=== PATIENT | female | born 1940 | race Asian ===

== ENCOUNTER 2018-02-13 08:32 | Inpatient (IN) | payer MEDICARE, OTHER ==
[~2018-02-13] VITALS: Ht 152.4 cm; Wt 58.9 kg
[2018-02-13] MEDS ORDERED: SODIUM CHLORIDE 0.9% 1,000 ML IV ONE (09:17)
[2018-02-13 09:29] LABS: Urine Bacteria NONE SEEN /hpf (None Seen); Urine Blood 1+ /uL (Negative); Urine Hyaline Cast FEW /lpf (0 - 2); Urine Specific Gravity 1.015 (1.001-1.035); Urine WBC 1 /hpf (0 - 5)
[2018-02-13] MEDS ORDERED: LORazepam 2MG/ML-1ML VIAL IV ONE (09:30)
[2018-02-13 09:43] LABS: Alcohol, Urine < 3.0 mg/dL (0-5); Amphetamine Screen, Urine NEGATIVE (NEGATIVE); Barbiturate Scree,Urine NEGATIVE (NEGATIVE); Benzodiazephine Screen, Urine NEGATIVE (NEGATIVE); Cannabinoid Screen, Urine NEGATIVE (NEGATIVE); Cocaine Screen, Urine NEGATIVE (NEGATIVE); Opiate Scree,Urine NEGATIVE (NEGATIVE); Phencyclidine Screen, Urine NEGATIVE (NEGATIVE)
[2018-02-13 09:48] LABS: Basophils # (auto) 0 uL; Basophils % (auto) 0.5 % (0.0-2.0); Eosinophils # (auto) 0.1 uL; Eosinophils % (auto) 1.3 % (0.0-7.0); Hematocrit 43.5 % (36.0-46.0); Lymphocytes % (auto) 42.4 % (10.0-50.0); Mean Corpuscular Hemoglobin 28.6 pg (28.0-32.0); Mean Corpuscular Hgb Conc. 32.2 g/dL (32.0-36.0); Mean Corpuscular Volume 88.8 fL (80.0-100.0); Monocytes # (auto) 0.3 uL; Monocytes % (auto) 4.6 % (0.0-12.0); Neutrophils # (auto) 3.6 uL; Neutrophils % (auto) 51.2 % (37.0-80.0); Nucleated Red Blood Cells % 0.1 %; Platelet Count (auto) 371 10^3/uL (140-450); Red Cell Distribution Width 13.4 % (11.8-14.3); White Blood Cell 7.1 10^3/uL (4.4-10.8)
[2018-02-13 10:06] LABS: Alanine Aminotransferase 22 U/L (13-56); Albumin 4.1 g/dL (3.4-5.0); Anion Gap 11 (5-15); Aspartate Aminotransferase 18 U/L (15-37); BUN/Creatinine Ratio 12.9; Blood Alcohol < 3.0 mg/dL (0-5); Blood Urea Nitrogen 15 mg/dL (7-18); Calcium 8.9 mg/dL (8.5-10.1); Carbon Dioxide 21 mmol/L (21-32); Chloride 109 mmol/L (98-107); GFR African American 58 mL/min; GFR Non-African American 48 mL/min; Glucose 131 mg/dL (74-106); Magnesium 2.2 mg/dL (1.6-2.6); Potassium 3.8 mmol/L (3.5-5.1); Sodium 141 mmol/L (136-145)
[2018-02-13 10:11] LABS: Alkaline Phosphatase 98 U/L (45-117); Bilirubin, Total 0.5 mg/dL (0.2-1.0); Total Protein 8.7 g/dL (6.4-8.2)
[2018-02-13 10:15] LABS: Lactic Acid w/Reflex 2.7 mmol/L (0.4-2.0)
[2018-02-13] MEDS: PANTOPRAZOLE 40 MG TAB PO SCH (12:14)
[2018-02-13] MEDS: ASPirin 81 mg TAB PO SCH (12:14)
[2018-02-13] MEDS ORDERED: TEMAZEPAM 15 MG CAP PO PRN (12:15)
[2018-02-13] MEDS ORDERED: LORazepam 0.5 MG TAB PO PRN (12:15)
[2018-02-13] MEDS ORDERED: DEXTROSE (50%) 50ML SYRG IV PRN (12:15)
[2018-02-13] MEDS ORDERED: NITROGLYCERIN 0.4 MG SL TAB SL PRN (12:15)
[2018-02-13] MEDS ORDERED: ACETAMINOPHEN 500 MG TAB PO PRN (12:15)
[2018-02-13] MEDS ORDERED: PROMETHAZINE HCL 25 MG/ML 1ML IV PRN (12:15)
[2018-02-13] MEDS ORDERED: LACTULOSE 20Gm/30ML SOLN PO PRN (12:15)
[2018-02-13] MEDS ORDERED: MORPHINE SULFATE 4 MG/ML SYR/VIAL IV PRN ×2 (12:15)
[2018-02-13] MEDS ORDERED: HYDROcodone-ACET 5/325MG TAB PO PRN (12:15)
[2018-02-13] MEDS: ENOXAPARIN SOD 40 MG/0.4 ML SYRINGE SC SCH (12:33)
[2018-02-13] MEDS: cefTRIAXone 1GM/50ML D5W 50 ML IV SCH (13:08)
[2018-02-13] MEDS: SODIUM CHLORIDE 0.9% 1,000 ML IV SCH (13:08)
[2018-02-13 16:40] VITALS: BP 138/74
[2018-02-13] MEDS: ACCU-CHEK COMFORT CURVE STRIP VI SCH ×2 (18:00→18:34)
[2018-02-13 20:00] VITALS: BP 132/65
[2018-02-13] MEDS ORDERED: LORazepam 2MG/ML-1ML VIAL IV PRN (21:00)
[2018-02-13] MEDS: ATORVASTATIN 20 MG TAB PO SCH (21:23)
[2018-02-13 21:30] VITALS: BP 132/65
[2018-02-13 21:31] LABS: Cholesterol 151 mg/dL (< 200); Triglycerides 229 mg/dL (< 150)
[2018-02-13 21:33] LABS: HDL Cholesterol 38 mg/dL (40-59); LDL Cholesterol 89 mg/dL (< 100)
[2018-02-13] MEDS ORDERED: ATORVASTATIN 20 MG TAB PO SCH (22:00)
[2018-02-14] MEDS: SODIUM CHLORIDE 0.9% 1,000 ML IV SCH ×2 (00:22→12:39)
[2018-02-14 05:00] VITALS: BP 163/87
[2018-02-14] MEDS: ACCU-CHEK COMFORT CURVE STRIP VI SCH ×4 (05:43→23:31)
[2018-02-14 08:47] VITALS: BP 164/90
[2018-02-14] MEDS: cefTRIAXone 1GM/50ML D5W 50 ML IV SCH (09:23)
[2018-02-14] MEDS: ASPirin 81 mg TAB PO SCH (11:19)
[2018-02-14] MEDS: PANTOPRAZOLE 40 MG TAB PO SCH (11:19)
[2018-02-14] MEDS: ENOXAPARIN SOD 40 MG/0.4 ML SYRINGE SC SCH (11:20)
[2018-02-14 13:20] VITALS: BP 151/77
[2018-02-14] MEDS ORDERED: ACET-1156 PO (17:03)
[2018-02-14] MEDS ORDERED: BUSP10TA90 PO (17:04)
[2018-02-14] MEDS ORDERED: QUET100T46 PO (17:05)
[2018-02-14 17:14] VITALS: BP 154/102
[2018-02-14] MEDS ORDERED: CLON0.2D6 PO (17:17)
[2018-02-14] MEDS ORDERED: TEMA30CA PO (17:17)
[2018-02-14] MEDS ORDERED: AMLO5TAB13 PO (17:17)
[2018-02-14] MEDS ORDERED: ASPI325T4 PO (17:17)
[2018-02-14] MEDS ORDERED: DOCU100T15 PO (17:17)
[2018-02-14] MEDS ORDERED: LISI10TA6 PO (17:17)
[2018-02-14] MEDS ORDERED: MULTTAB61 PO (17:17)
[2018-02-14] MEDS ORDERED: ATOR40TA52 PO (17:17)
[2018-02-14] MEDS ORDERED: BACL10TA PO (17:17)
[2018-02-14] MEDS ORDERED: SENN-58 PO (17:17)
[2018-02-14] MEDS ORDERED: OME20T PO (17:17)
[2018-02-14] MEDS ORDERED: LACT10SO3 PO (17:18)
[2018-02-14] MEDS ORDERED: FURO20TA3 PO (17:18)
[2018-02-14] MEDS ORDERED: TRAM50TA2 PO (17:18)
[2018-02-14] MEDS ORDERED: ALPR0.254 PO (17:21)
[2018-02-14] MEDS ORDERED: ALUMSUS OR (17:26)
[2018-02-14 20:00] VITALS: BP 189/128
[2018-02-14] MEDS: ATORVASTATIN 20 MG TAB PO SCH (21:19)
[2018-02-14] MEDS: LABETALOL HCL 5 MG/ML ML 20ML VIAL IV PRN (21:52)
[2018-02-14 22:00] VITALS: BP 189/128
[2018-02-15] MEDS: SODIUM CHLORIDE 0.9% 1,000 ML IV SCH ×2 (01:39→15:04)
[2018-02-15 05:00] VITALS: BP 167/83
[2018-02-15] MEDS: LABETALOL HCL 5 MG/ML ML 20ML VIAL IV PRN ×4 (05:15→21:52)
[2018-02-15] MEDS: ACCU-CHEK COMFORT CURVE STRIP VI SCH ×4 (05:16→23:52)
[2018-02-15 08:54] VITALS: BP 149/107
[2018-02-15] MEDS: cefTRIAXone 1GM/50ML D5W 50 ML IV SCH (09:20)
[2018-02-15] MEDS: PANTOPRAZOLE 40 MG TAB PO SCH (09:20)
[2018-02-15] MEDS: ASPirin 81 mg TAB PO SCH (09:22)
[2018-02-15] MEDS: ENOXAPARIN SOD 40 MG/0.4 ML SYRINGE SC SCH (09:31)
[2018-02-15 10:37] LABS: Folate (Folic Acid) 9.79 ng/mL (5.38-24)
[2018-02-15 12:22] VITALS: BP 185/89
[2018-02-15 17:15] VITALS: BP 187/89
[2018-02-15 21:59] VITALS: BP 138/110
[2018-02-15] MEDS: ATORVASTATIN 20 MG TAB PO SCH (22:04)
[2018-02-16] MEDS: SODIUM CHLORIDE 0.9% 1,000 ML IV SCH (02:18)
[2018-02-16 05:33] VITALS: BP 182/95
[2018-02-16] MEDS: LABETALOL HCL 5 MG/ML ML 20ML VIAL IV PRN (05:41)
[2018-02-16] MEDS: ACCU-CHEK COMFORT CURVE STRIP VI SCH ×2 (05:42→12:03)
[2018-02-16] MEDS ORDERED: cloNIDine HCL 0.1 MG TAB PO ONE (07:00)
[2018-02-16 09:00] VITALS: BP 143/69
[2018-02-16] MEDS: ENOXAPARIN SOD 40 MG/0.4 ML SYRINGE SC SCH (09:13)
[2018-02-16] MEDS: cefTRIAXone 1GM/50ML D5W 50 ML IV SCH (09:13)
[2018-02-16] MEDS: ASPirin 81 mg TAB PO SCH (09:14)
[2018-02-16] MEDS: PANTOPRAZOLE 40 MG TAB PO SCH (09:14)
[2018-02-16 12:15] VITALS: BP 143/69
[2018-02-16 13:00] VITALS: BP 168/65
== END 2018-02-16 15:10 | DRG 71 ==
LOC: ER 08:32 → TELE 12:08 → EDBD 12:08 → TELE-EAST 13:31
PROVIDERS: ADMIT Internal Medicine; ATTEND Family Medicine
DX: G93.41 Metabolic encephalopathy (principal); I69.354 Hemiplegia and hemiparesis following cerebral infarction affecting left non-dominant side; R26.9 Unspecified abnormalities of gait and mobility; D32.9 Benign neoplasm of meninges, unspecified; F17.200 Nicotine dependence, unspecified, uncomplicated; I10 Essential (primary) hypertension; D17.5 Benign lipomatous neoplasm of intra-abdominal organs; N20.0 Calculus of kidney; N28.1 Cyst of kidney, acquired; K80.20 Calculus of gallbladder without cholecystitis without obstruction; Z79.82 Long term (current) use of aspirin; Z79.899 Other long term (current) drug therapy; Z82.49 Family history of ischemic heart disease and other diseases of the circulatory system
CPT/HCPCS: 36415; 70450; 71045; 74176; 80053; 80061; 80307; 80320; 81001; 82550; 82607; 82746; 82962; 83036; 83605; 83735; 84443; 84484; 85025; 85652; 87040; 87081; 87086; 92610; 93005; 93306; 93886; 94761; 95819; G0378; J0696